=== PATIENT | male | born 1955 | race American Indian/Alaskan Native ===

== ENCOUNTER 2021-03-31 16:12 | Emergency (ER) | payer MEDICARE ==
[2021-03-31 16:38] VITALS: BP 148/82
[2021-03-31] MEDS ORDERED: ASPIRIN 325 MG TAB PO ONE (16:47)
--- NOTE | 2021-03-31 17:09 | XRay Report ---
CHEST 2 VIEWS INDICATION / CLINICAL INFORMATION: Chest pain, weakness, history of fall. COMPARISON: None available. FINDINGS: SUPPORT DEVICES: Satisfactory positioning of a left ICD. HEART / MEDIASTINUM: The cardiac silhouette is mildly enlarged. No other significant abnormality. LUNGS / PLEURA: The right hemidiaphragm is elevated with clear lungs. No significant pleural effusion . No pneumothorax. ADDITIONAL FINDINGS: No significant additional findings. IMPRESSION: 1. No acute abnormality of the chest. 2. Mild cardiomegaly. Signer Name: Sj Butler MD Signed: 03/31/2021 5:04 PM Workstation Name: [id number]
[2021-03-31 17:49] LABS: Alanine Aminotransferase 18 units/L (7-56); BUN/Creatinine Ratio 16; Basophils # (Auto) 0.1 K/mm3 (0.0-0.1); Basophils % (Auto) 1.2 % (0.0-1.8); Blood Urea Nitrogen 21 mg/dL (9-20); Calcium 9.4 mg/dL (8.4-10.2); Eosinophils # (Auto) 0.2 K/mm3 (0.0-0.4); Eosinophils % (Auto) 3.1 % (0.0-4.3); Hematocrit 48.1 % (35.5-45.6); Hemoglobin 16.3 gm/dl (11.8-15.2); Hemolysis Index 11; Lymphocytes # (Auto) 1.9 K/mm3 (1.2-5.4); Lymphocytes % (Auto) 26.7 % (13.4-35.0); Mean Corpuscular HGB Conc 34 % (32-34); Mean Corpuscular Volume 94 fl (84-94); Monocytes # (Auto) 0.9 K/mm3 (0.0-0.8); Monocytes % (Auto) 12.2 % (0.0-7.3); Platelet Count 172 K/mm3 (140-440); Red Blood Count 5.09 M/mm3 (3.65-5.03); Red Cell Distribution Width 14.6 % (13.2-15.2)
--- NOTE | 2021-03-31 18:27 | Event Note ---
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 Further treatment and workup at subsequent clinical providers discretion. Patient/guardian urged not to elope from the ED as their condition may be serious if not clinically assessed and hugo landaverde. Initial orders include: labs, urine, xr, ekg
--- NOTE | 2021-03-31 19:24 | XRay Report ---
ABDOMEN 3 VIEW(S) INDICATION / CLINICAL INFORMATION: abd pain, constipation. COMPARISON: None available. FINDINGS: TUBES / LINES: None. BOWEL GAS PATTERN: Moderate colonic stool burden may be seen with constipation. Nonobstructive bowel gas pattern. FREE AIR / EXTRALUMINAL GAS: None seen. ADDITIONAL FINDINGS: Moderate degenerative changes in the hips and penile prosthesis noted. IMPRESSION: 1. Bowel findings as above. Signer Name: Andrzej Jones MD Signed: 03/31/2021 7:19 PM Workstation Name: [id number]
[2021-03-31] MEDS ORDERED: SODIUM CHLORIDE 0.9% 1000 ML 1,000 ML IV ONE (20:12)
[2021-03-31] MEDS ORDERED: ONDANSETRON 4 MG/2 ML INJ IV ONE (20:12)
--- NOTE | 2021-03-31 20:54 | Emergency Department Report ---
ED General Adult HPI - General Chief complaint: Weakness Stated complaint: PACEMAKER/GEN WEAKNESS Time Seen by Provider: 03/31/21 18:25 Source: patient Mode of arrival: Ambulatory Limitations: No Limitations - History of Present Illness Initial comments: Patient is a 66-year-old -[place] male with history of CHF, hypertension, stage II renal disease, AICD, and hx of appendectomy. 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 - Related Data Home Medications Medication Instructions Recorded Confirmed Last Taken Aspirin EC [Halfprin EC] 1 tab PO DAILY 01/25/14 01/28/14 01/19/14 Furosemide 20 mg PO DAILY 01/25/14 01/28/14 01/27/14 09:00 Simvastatin 20 mg PO DAILY 01/25/14 01/28/14 01/27/14 21:00 carvediloL [Coreg] 1 tab PO DAILY 01/25/14 01/28/14 01/28/14 07:00 lisinopriL [Zestril TAB] 1 tab PO DAILY 01/25/14 01/28/14 01/27/14 09:00 Previous Rx's Medication Instructions Recorded Last Taken Type HYDROcodone/APAP 5-325 [[place] 1 - 2 each PO Q4-6H PRN #20 tablet 02/23/14 Unknown Rx 5/325] bisacodyL [Dulcolax suppos] 10 mg AL QDAY PRN #7 supp.rect 03/31/21 Unknown Rx polyethylene glycoL 3350 [Miralax 17 gm PO BID PRN #14 packet 03/31/21 Unknown Rx 3350] Allergies Allergy/AdvReac Type Severity Reaction Status Date / Time No Known Allergies Allergy Unverified 01/25/14 10:56 ED Review of Systems ROS: Stated complaint: PACEMAKER/GEN WEAKNESS Other details as noted in HPI Constitutional: malaise Eyes: denies: eye pain, eye discharge, vision change ENT: denies: ear pain, throat pain Respiratory: shortness of breath. denies: cough, wheezing Cardiovascular: chest pain. denies: palpitations, edema, paroxysmal nocturnal dyspnea Endocrine: no symptoms reported Gastrointestinal: abdominal pain (LUQ ). denies: nausea, vomiting, diarrhea, constipation, melena Genitourinary: denies: urgency, dysuria, frequency, hematuria, discharge Musculoskeletal: denies: back pain, joint swelling, arthralgia Skin: denies: rash, lesions Neurological: weakness. denies: headache, paresthesias, vertigo Psychiatric: denies: anxiety, depression Hematological/Lymphatic: denies: easy bleeding, easy bruising ED Past Medical Hx - Past Medical History Previous Medical History?: Yes Hx Hypertension: Yes Hx Congestive Heart Failure: Yes Hx Renal Disease: Yes (CKD stage 2) Additional medical history: Defrillator - Surgical History Past Surgical History?: Yes Hx Internal Defibrillator: Yes Hx Appendectomy: Yes Additional Surgical History: Penile implant 01/28/2014 - Social History Smoking Status: Current Some Day Smoker (occasional cigar) Substance Use Type: Alcohol (occasional) - Medications Home Medications: Home Medications Medication Instructions Recorded Confirmed Last Taken Type Aspirin EC [Halfprin EC] 1 tab PO DAILY 01/25/14 01/28/14 01/19/14 History Furosemide 20 mg PO DAILY 01/25/14 01/28/14 01/27/14 09:00 History Simvastatin 20 mg PO DAILY 01/25/14 01/28/14 01/27/14 21:00 History carvediloL [Coreg] 1 tab PO DAILY 01/25/14 01/28/14 01/28/14 07:00 History lisinopriL [Zestril TAB] 1 tab PO DAILY 01/25/14 01/28/14 01/27/14 09:00 History HYDROcodone/APAP 5-325 [[place] 1 - 2 each PO Q4-6H PRN #20 tablet 02/23/14 Unknown Rx 5/325] bisacodyL [Dulcolax suppos] 10 mg AL QDAY PRN #7 supp.rect 03/31/21 Unknown Rx polyethylene glycoL 3350 [Miralax 17 gm PO BID PRN #14 packet 03/31/21 Unknown Rx 3350] ED Physical Exam - General Limitations: No Limitations General appearance: alert, in no apparent distress - Head Head exam: Present: atraumatic, normocephalic - Eye Eye exam: Present: normal appearance, EOMI Pupils: Present: normal accommodation - ENT ENT exam: Present: mucous membranes moist - Neck Neck exam: Present: normal inspection, full ROM. Absent: tenderness, lymphadenopathy, thyromegaly - Respiratory Respiratory exam: Present: normal lung sounds bilaterally. Absent: respiratory distress, wheezes, rales, rhonchi, stridor, chest wall tenderness - Cardiovascular Cardiovascular Exam: Present: regular rate, normal rhythm, normal heart sounds. Absent: systolic murmur, diastolic murmur, rubs, gallop - GI/Abdominal GI/Abdominal exam: Present: soft, normal bowel sounds. Absent: distended, tenderness, guarding, rebound, rigid, bruit, hernia - Rectal Rectal exam: Present: deferred - Extremities Exam Extremities exam: Present: normal inspection, full ROM. Absent: tenderness, pedal edema - Back Exam Back exam: Present: normal inspection, full ROM. Absent: CVA tenderness (R), CVA tenderness (L) - Neurological Exam Neurological exam: Present: alert, oriented X3, CN II-XII intact, normal gait - Psychiatric Psychiatric exam: Present: normal affect, normal mood - Skin Skin exam: Present: warm, dry, intact, normal color. Absent: rash ED Course Vital Signs 03/31/21 16:33 Temperature 97.9 F Pulse Rate 65 Respiratory 18 Rate Blood Pressure 148/82 O2 Sat by Pulse 97 Oximetry ED Medical Decision Making - Lab Data Result diagrams: 03/31/21 17:12 03/31/21 17:12 Labs 03/31/21 03/31/21 03/31/21 17:12 17:12 17:12 WBC 7.0 RBC 5.09 H Hgb 16.3 H Hct 48.1 H MCV 94 MCH 32 MCHC 34 RDW 14.6 Plt Count 172 Lymph % (Auto) 26.7 [place] % (Auto) 12.2 H Eos % (Auto) 3.1 Baso % (Auto) 1.2 Lymph # (Auto) 1.9 [place] # (Auto) 0.9 H Eos # (Auto) 0.2 Baso # (Auto) 0.1 Seg Neutrophils % 56.8 Seg Neutrophils # 4.0 Sodium 137 Potassium 4.0 Chloride 103.5 Carbon Dioxide 21 L Anion Gap 17 BUN 21 H Creatinine 1.3 Estimated GFR > 60 BUN/Creatinine Ratio 16 Glucose 93 Calcium 9.4 Total Bilirubin 0.60 AST 14 ALT 18 Alkaline Phosphatase 102 Troponin T 0.020 NT-Pro-B Natriuret Pep 778.5 Total Protein 6.9 Albumin 4.0 Albumin/Globulin Ratio 1.4 Lipase 47 03/31/21 19:42 WBC RBC Hgb Hct MCV MCH MCHC RDW Plt Count Lymph % (Auto) [place] % (Auto) Eos % (Auto) Baso % (Auto) Lymph # (Auto) [place] # (Auto) Eos # (Auto) Baso # (Auto) Seg Neutrophils % Seg Neutrophils # Sodium Potassium Chloride Carbon Dioxide Anion Gap BUN Creatinine Estimated GFR BUN/Creatinine Ratio Glucose Calcium Total Bilirubin AST ALT Alkaline Phosphatase Troponin T 0.024 NT-Pro-B Natriuret Pep Total Protein Albumin Albumin/Globulin Ratio Lipase - EKG Data EKG shows normal: sinus rhythm Rate: normal - EKG Data When compared to previous EKG there are: previous EKG unavailable Interpretation: other (SR, no ST Elevated MT, Multform Vetricular Permature, complexes, Aberrant Complewx LBB, ekg interp by ed attending. ) - Radiology Data Radiology results: report reviewed, image reviewed cc: ED DOC, Fluoro Time In Minutes: CHEST 2 VIEWS INDICATION / CLINICAL INFORMATION: Chest pain, weakness, history of fall. COMPARISON: None available. FINDINGS: SUPPORT DEVICES: Satisfactory positioning of a left ICD. HEART / MEDIASTINUM: The cardiac silhouette is mildly enlarged. No other significant abnormality. LUNGS / PLEURA: The right hemidiaphragm is elevated with clear lungs. No significant pleural effusion. No pneumothorax. ADDITIONAL FINDINGS: No significant additional findings. IMPRESSION: 1. No acute abnormality of the chest. 2. Mild cardiomegaly. Signer Name: Sj Butler MD Signed: 03/31/2021 5:04 PM Workstation Name: [id number] Transcribed By: [place] Dictated By: Sj Butler MD Electronically Authenticated By: Sj Butler MD Signed Date/Time: 03/31/211703 DD/ 02 TD/TT: Fluoro Time In Minutes: ABDOMEN 3 VIEW(S) INDICATION / CLINICAL INFORMATION: abd pain, constipation. COMPARISON: None available. FINDINGS: TUBES / LINES: None. BOWEL GAS PATTERN: Moderate colonic stool burden may be seen with constipation. Nonobstructive bowel gas pattern. FREE AIR / EXTRALUMINAL GAS: None seen. ADDITIONAL FINDINGS: Moderate degenerative changes in the hips and penile prosthesis noted. IMPRESSION: 1. Bowel findings as above. Signer Name: Andrzej Jones MD Signed: 03/31/2021 7:19 PM Workstation Name: [id number] Transcribed By: SUMIT Dictated By: Andrzej Jones MD Electronically Authenticated By: Andrzej Jones MD Signed Date/Time: 03/31/211918 DD/ 16 TD/TT: - Medical Decision Making 2123: Consult to ED attending troponin 0 0.20 and 0.24 consecutive heart score 4, chest x-ray mild cardiomegaly no infiltrate no opacities, EKG sinus rhythm multifocal PVCs left bundle branch block, no ST elevated MT, no previous EKG to compare. Discussed admission with patient including cardiology consult. Patient declines at this time. Counseled by ED attending patient persisted with no admission or others AMA. Patient will complete IV fluids, reevaluate, revisit possible admission for chest pain and possible cardiology consult. Patient advises symptoms are improved, patient advises that he wants to sign out AGAINST MEDICAL ADVICE AMA, patient has had the opportunity to ask and I have answered all patient questions regarding evaluation and possible diagnosis in cluding risks of leaving AMA including worsening condition and . At present patient is alert oriented x3, patient is amatory with steady gait there is no shortness of breath, dizziness or lightheadedness. No nausea vomiting or diaphoresis. Patient does demonstrate decision-making capacity. Patient will depart AMA at this time. Critical care attestation.: If time is entered above; I have spent that time in minutes in the direct care of this critically ill patient, excluding procedure time. ED Disposition Clinical Impression: Chest pain Qualifiers: Chest pain type: unspecified Qualified Code(s): R07.9 - Chest pain, unspecified Disposition: DC-07 LEFT AGAINST MED ADVICE Is pt being admited?: No Does the pt Need Aspirin: Yes (done) Condition: Undetermined Instructions: Nonspecific Chest Pain, Adult, Nonspecific Chest Pain, Adult, [id number] Additional Instructions: You're leaving AGAINST MEDICAL ADVICE, follow-up with your doctor as soon as possible, return to emergency department should symptoms worsen. Prescriptions: bisacodyL [Dulcolax suppos] 10 mg AL QDAY PRN #7 supp.rect PRN Reason: Constipation polyethylene glycoL 3350 [Miralax 3350] 17 gm PO BID PRN #14 packet PRN Reason: Constipation Referrals: LAUREN AQUINO MD [Primary Care Provider] - NEREIDA Forms: AMA Form Time of Disposition: 22:26
--- NOTE | 2021-04-02 10:53 | Electrocardiograph Report ---
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
== END 2021-03-31 22:30 | disposition left against medical advice (07) ==
LOC: ED 16:12
DX: R07.9 Chest pain, unspecified (principal); I13.0 Hypertensive heart and chronic kidney disease with heart failure and stage 1 through stage 4 chronic kidney disease, or unspecified chronic kidney disease; N18.2 Chronic kidney disease, stage 2 (mild); I50.9 Heart failure, unspecified; Z98.890 Other specified postprocedural states; F17.290 Nicotine dependence, other tobacco product, uncomplicated
CPT/HCPCS: 36415; 71046; 74019; 80053; 83690; 83880; 84484; 85025; 93005; 96361; 96374; 99284; J2405; J7030